=== PATIENT | male | born 1970 | race Caucasian/White ===

== ENCOUNTER 2017-07-09 04:09 | Emergency (ER) | payer OTHER ==
[2017-07-09] MEDS ORDERED: DIPH,PERTUS(ACELL)TETVAC-LF 0.5 ML VIAL IM ONE (04:17)
[2017-07-09] MEDS ORDERED: PROPARACAINE 0.5% OPHTH DROPS 15 ML BTL LEFT EYE STA (04:17)
[2017-07-09 04:20] VITALS: PULSE 64; RESP 16
[2017-07-09] MEDS ORDERED: POLYMYXIN B-TRIMETHOPRIM SULF (10,000-1) OPHTH DROPS 10 ML BTL LEFT EYE STA (04:55)
--- NOTE | 2017-07-09 05:15 | ED ---
Eye Problem HPI - General Chief complaint: Eye Problems Stated complaint: FB in eye Time Seen by Provider: 07/09/17 04:32 Source: patient Mode of arrival: ambulatory Limitations: no limitations - History of Present Illness Initial comments: This patient is 46-year-old man who presents to be evaluated for foreign body sensation and left eye discomfort. The patient states that he had been working on a car yesterday and thought that something went into his eye. He states that he was not doing any welding, nor was he doing any high-speed grinding. Patient denies any change in his vision. Patient does not recall when his last tetanus shot was given. chief complaint: eye pain, eye redness, foreign body -: hour(s) Onset Description: gradual Location: left eye Place: home Eye Symptoms: foreign body sensation Severity: moderate Consistency: constant Associated Symptoms: none Treatments Prior to Arrival: none - Related Data Patient Tetanus UTD: No Allergies Allergy/AdvReac Type Severity Reaction Status Date / Time No Known Allergies Allergy Verified 07/09/17 04:14 Review of Systems ROS Statement: Those systems with pertinent positive or pertinent negative responses have been documented in the HPI. ROS Other: All systems not noted in ROS Statement are negative. Constitutional: Denies: fever, chills Eyes: Reports: eye pain. Denies: vision change ENT: Denies: congestion Respiratory: Denies: cough, dyspnea Neurological: Denies: headache Past Medical History Past Medical History: No Reported History History of Any Multi-Drug Resistant Organisms: None Reported Past Surgical History: No Surgical Hx Reported Past Psychological History: No Psychological Hx Reported Smoking Status: Current every day smoker Past Alcohol Use History: Occasional Past Drug Use History: None Reported General Exam Limitations: no limitations General appearance: alert, in no apparent distress Head exam: Present: atraumatic, normocephalic Eye exam: Present: PERRL, EOMI, conjunctival injection. Absent: scleral icterus , nystagmus, periorbital swelling, periorbital tenderness ENT exam: Present: normal oropharynx Skin exam: Present: warm, dry, intact, normal color. Absent: rash Course Vital Signs 07/09/17 07/09/17 07/09/17 04:12 04:19 05:22 Temperature 97.8 F 97.1 F L Pulse Rate 77 64 64 Respiratory 18 16 16 Rate Blood Pressure 146/90 143/89 164/80 O2 Sat by Pulse 99 98 98 Oximetry Medical Decision Making - Medical Decision Making Slit lamp exam was performed, including with fluorescein. Lids and lashes are normal. There is some conjunctival injection of the left eye. The cornea is thin and clear. Stain does show some small corneal abrasions centrally. There is no visible foreign body. The anterior chamber is free of cell and flare. Iris appears normal. I did ramiro the patient's lids, irrigate, and sweep with a cotton applicator. The patient had resolution of the foreign body symptoms. He will be treated with antibiotic drops and follow with ophthalmology, returning if there is any worsening in anyway, including eye pain or change in vision. Disposition Clinical Impression: Corneal abrasion Disposition: HOME SELF-CARE Condition: Good Instructions: Abrasion (ED) Is patient prescribed a controlled substance at d/c from ED?: No Referrals: None,Stated [Primary Care Provider] - 1-2 days Matt Aguirre MD [STAFF PHYSICIAN] - 1-2 days
[2017-07-09 05:25] VITALS: BP 164/80; TEMP 97.1
== END 2017-07-09 05:30 | disposition home or self-care (01) ==
LOC: EC 04:09
DX: S05.02XA Injury of conjunctiva and corneal abrasion without foreign body, left eye, initial encounter (principal); F17.200 Nicotine dependence, unspecified, uncomplicated; Z23 Encounter for immunization; X58.XXXA Exposure to other specified factors, initial encounter; Y92.009 Unspecified place in unspecified non-institutional (private) residence as the place of occurrence of the external cause; Y93.89 Activity, other specified
CPT/HCPCS: 90471; 90715; 99283

== ENCOUNTER 2021-10-31 09:46 | Emergency (ER) | payer SELFPAY ==
[2021-10-31 10:06] VITALS: RESP 18; TEMP 98
--- NOTE | 2021-10-31 11:57 | ED ---
Extremity Problem HPI - General Chief complaint: Extremity Problem,Nontraumatic Stated complaint: groin injury Time Seen by Provider: 10/31/21 11:20 Source: patient, RN notes reviewed Mode of arrival: ambulatory Limitations: no limitations - History of Present Illness Initial comments: 51-year-old male presents emergency from with chief complaint right groin pain. Patient states this started on Sunday after stepping up into his truck moving stuff. Patient states he felt a pop. Patient states it's bulging swelling the right groin worsening he is here urgent care was given anti-inflammatories, muscle relaxers. Patient does not seem to be improving. Patient has no dysuria no change in bowel habits no other complaints. - Related Data Allergies Allergy/AdvReac Type Severity Reaction Status Date / Time No Known Allergies Allergy Verified 10/31/21 10:06 Review of Systems ROS Statement: Those systems with pertinent positive or pertinent negative responses have been documented in the HPI. ROS Other: All systems not noted in ROS Statement are negative. Past Medical History Past Medical History: No Reported History History of Any Multi-Drug Resistant Organisms: None Reported Past Surgical History: No Surgical Hx Reported Past Psychological History: No Psychological Hx Reported Smoking Status: Current every day smoker Past Alcohol Use History: Occasional Past Drug Use History: None Reported General Exam Limitations: no limitations General appearance: alert, in no apparent distress Head exam: Present: atraumatic, normocephalic, normal inspection Eye exam: Present: normal appearance, PERRL, EOMI. Absent: scleral icterus, conjunctival injection, periorbital swelling ENT exam: Present: normal exam, mucous membranes moist Neck exam: Present: normal inspection, full ROM. Absent: tenderness, meningismus, lymphadenopathy Respiratory exam: Present: normal lung sounds bilaterally. Absent: respiratory distress, wheezes, rales, rhonchi, stridor Cardiovascular Exam: Present: regular rate, normal rhythm, normal heart sounds. Absent: systolic murmur, diastolic murmur, rubs, gallop, clicks GI/Abdominal exam: Present: soft, normal bowel sounds. Absent: distended, tenderness, guarding, rebound, rigid exam: Present: other (Right groin tenderness, mild swelling) Course Vital Signs 10/31/21 10:03 Temperature 98 F Pulse Rate 68 Respiratory 18 Rate Blood Pressure 156/105 O2 Sat by Pulse 99 Oximetry Medical Decision Making - Medical Decision Making Ultrasound does not reveal any inguinal hernia noted there is a large lymph node 3.9 cm. Patient has not presents infection patient will follow-up with surgery possible biopsy if need be. Disposition Clinical Impression: Right groin pain, Lymphadenopathy, inguinal Disposition: HOME SELF-CARE Condition: Stable Instructions (If sedation given, give patient instructions): Groin Strain (ED) Additional Instructions: Please return to the Emergency Department if symptoms worsen or any other concerns. Is patient prescribed a controlled substance at d/c from ED?: No Referrals: None,Stated [Primary Care Provider] - 1-2 days Ketan Khan MD [STAFF PHYSICIAN] - 1-2 days Time of Disposition: 12:33
--- NOTE | 2021-10-31 12:10 | US ---
EXAMINATION TYPE: US groin RT DATE OF EXAM: 10/31/2021 COMPARISON: NONE CLINICAL HISTORY: pain. Right groin pain after having pain and hearing a popping noise. The right groin was scanned over area of pain, as pointed patient. Valsalva maneuver was utilized. No obvious hernia identified. No abnormal fluid collection is seen. There are some lymph nodes noted, o ne appears enlarged at 3.9 cm. No obvious hernia defect. No suspicious solid or cystic mass or fluid collection seen. Elongated prom inent lymph node noted towards end of study. Consider reactive etiology. There is preservation of nor mal fatty hilum and measures subcentimeter in short axis IMPRESSION: As above.
[2021-10-31 12:48] VITALS: BP 124/78; PULSE 80
== END 2021-10-31 12:48 | disposition home or self-care (01) ==
LOC: EC 09:46
DX: R59.0 Localized enlarged lymph nodes (principal); R10.2 Pelvic and perineal pain; F17.200 Nicotine dependence, unspecified, uncomplicated
CPT/HCPCS: 99284